=== PATIENT | female | born 1940 | race Caucasian/White ===

== ENCOUNTER 2024-08-23 11:23 | Emergency (ER) | payer MEDICARE ==
[~2024-08-23] VITALS: Ht 157.5 cm; Wt 65.0 kg
[2024-08-23 11:39] VITALS: BP 160/100
[2024-08-23] MEDS ORDERED: Diph, Acellular Pertussis, Tet 0.5 ML/VIAL (Tdap) SDV IM ONE (11:40)
[2024-08-23 11:41] VITALS: BP 149/85
[2024-08-23 11:45] VITALS: BP 135/103
[2024-08-23 12:01] LABS: HEMATOCRIT 36.1 % (37.0-47.0); HEMOGLOBIN 11.7 g/dl (12.0-16.0); IMMATURE GRANULOCYTES 0.2 % (0.0-5.0); LYMPH% 31.8 % (15-41); MEAN CELL VOLUME 87.2 fL CALC (80.0-100.0); MEAN CORPUSCULAR HGB 28.3 pG CALC (26.0-32.0); MEAN CORPUSCULAR HGB CONC 32.4 g/dL CAL (32.0-36.0); MONO% 8.2 % (2-13); NEUT# 2.81 thou/uL (2.00-7.15); NEUT% 55.8 % (42-76); RED BLOOD COUNT 4.14 mill/uL (4.20-5.60); RED CELL DISTRI WIDTH 14.6 % (11.5-15.5)
[2024-08-23 12:11] LABS: ALBUMIN 4.1 g/dL (3.2-5.0); ALKALINE PHOSPHATASE 77 u/l (38-126); ANION GAP 11 (6-22 (CALC)); BILIRUBIN, TOTAL 0.8 mg/dL (0.02-1.3); BUN 17 mg/dL (8-23); BUN/CREATININE RATIO 32 (12-20 (CALC)); CARBON DIOXIDE 24 mmol/l (22-30); CHLORIDE 107 mmol/l (95-108); CREATININE 0.5 mg/dL (0.5-1.0); ESTIMATED GFR 93 ML/MIN (>=90 (CALC)); POTASSIUM 4.7 mmol/l (3.5-5.1); SGOT/AST 28 u/l (9-36); SODIUM 137 mmol/l (137-146)
[2024-08-23 14:11] VITALS: BP 135/103
== END 2024-08-23 14:19 | disposition home or self-care (01) ==
LOC: ED 11:23
PROVIDERS: Family Medicine
DX: S00.31XA Abrasion of nose, initial encounter (principal); W01.0XXA Fall on same level from slipping, tripping and stumbling without subsequent striking against object, initial encounter; Y93.H2 Activity, gardening and landscaping; Y92.007 Garden or yard of unspecified non-institutional (private) residence as the place of occurrence of the external cause
CPT/HCPCS: 90715